=== PATIENT | male | born 1960 | race Caucasian/White ===

== ENCOUNTER 2017-11-25 22:13 | Emergency (ER) | payer SELFPAY ==
[~2017-11-25] VITALS: Ht 185.4 cm; Wt 79.4 kg
[2017-11-25 22:19] VITALS: BP 111/66
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
[2017-11-26] MEDS ORDERED: AZIT250T6 PO (00:09)
== END 2017-11-26 00:14 | disposition home or self-care (01) ==
LOC: ER 22:13
DX: S00.83XA Contusion of other part of head, initial encounter (principal); S20.211A Contusion of right front wall of thorax, initial encounter; J18.1 Lobar pneumonia, unspecified organism; S00.33XA Contusion of nose, initial encounter; G89.29 Other chronic pain; J44.9 Chronic obstructive pulmonary disease, unspecified; F17.210 Nicotine dependence, cigarettes, uncomplicated; V49.49XA Driver injured in collision with other motor vehicles in traffic accident, initial encounter; Y93.89 Activity, other specified; Y92.488 Other paved roadways as the place of occurrence of the external cause; Y99.8 Other external cause status
CPT/HCPCS: 71046; 99284

== ENCOUNTER 2018-08-02 18:18 | Emergency (ER) | payer SELFPAY ==
[~2018-08-02] VITALS: Ht 177.8 cm; Wt 79.4 kg
[~2018-08-02 18:18] MED LIST: AZIT250T6 PO
--- NOTE | 2018-08-02 19:06 | PHYS DOC ---
Past Medical History Past Medical History: COPD Additional Past Medical Histor: Chronic Pain Past Surgical History: No Surgical History Alcohol Use: Occasionally Drug Use: Methadone Adult General Chief Complaint Chief Complaint: ALCOHOL INTOXICATION HPI HPI Patient is a 57 year old male with history of COPD, chronic pain, chronic alcoholism with binge drinking for the past several days. Patient states rate out of methadone 2 days ago and is been drinking 2 pints of alcohol daily. He is requesting medical screening evaluation for treatment of chronic alcoholism. Patient is drank heavily throughout the day. Patient's brother states patient has been following and when he has tried detoxing on his own, the patient does experience DTs. Patient currently denies chest pain palpitations, shortness of breath. Denies pain, or injury or other complaint. Patient is not currently involved in an alcohol rehabilitation program. No reports HI, SI, paranoia delusions or hallucinations. [] Review of Systems Review of Systems ROS as per HPI All other systems were reviewed and found to be within normal limits, except as documented in this note. Current Medications Current Medications Current Medications Medications (Trade) Dose Ordered Sig/Marisela Start Time Stop Time Status Last Admin Dose Admin Diazepam (Valium) 5 mg 1X ONCE 08/02/18 22:00 08/02/18 22:01 DC 08/02/18 21:53 5 MG Multivitamins 10 ml/Thiamine HCl 100 mg/Folic Acid 1 mg/Sodium Chloride 1,011.2 ml @ 1,000.088 mls/hr 1X ONCE 08/02/18 20:00 08/02/18 21:00 DC 08/02/18 19:21 1,000.088 MLS/HR Potassium Chloride (Klor-Con) 40 meq 1X ONCE 08/02/18 22:00 08/02/18 22:01 DC 08/02/18 21:53 40 MEQ Allergies Allergies Allergies Coded Allergies Type Severity Reaction Last Updated Verified No Known Drug Allergies 09/03/14 No Physical Exam Physical Exam Constitutional: Well developed, well nourished, no acute distress, non-toxic appearance. [] HENT: Normocephalic, atraumatic, bilateral external ears normal, oropharynx moist, no oral exudates, nose normal. [] Eyes: PERRL, conjunctiva injected [] Neck: Normal range of motion, no tenderness, supple, no stridor. [] Cardiovascular:Heart rate regular rhythm, no murmur [] Lungs & Thorax: Bilateral breath sounds clear to auscultation [] Abdomen: Bowel sounds normal. [] Skin: Warm, dry. [] Back: No tenderness, no CVA tenderness. [] Extremities: No tenderness, no cyanosis, no clubbing, ROM intact, no edema. [] Neurologic: Alert and oriented to person and place, slurring of speech, normal motor function, normal sensory function, no focal deficits noted. [] Psychologic: Affect normal, no HI, SI or hallucinations.[] Current Patient Data Vital Signs Vital Signs Date Time Temp Pulse Resp B/P (MAP) Pulse Ox O2 Delivery O2 Flow Rate FiO2 08/02/18 21:55 102 16 157/86 (109) 94 Room Air 08/02/18 18:55 98.2 98.2 Lab Values Laboratory Tests Test 08/02/18 19:10 08/02/18 19:40 White Blood Count 7.4 x10^3/uL (4.0-11.0) Red Blood Count 4.89 x10^6/uL (4.30-5.70) Hemoglobin 16.5 g/dL (13.0-17.5) Hematocrit 49.4 % (39.0-53.0) Mean Corpuscular Volume 101 fL (79-100) H Mean Corpuscular Hemoglobin 34 pg (25-35) Mean Corpuscular Hemoglobin Concent 34 g/dL (31-37) Red Cell Distribution Width 13.8 % (11.5-14.5) Platelet Count 141 x10^3/uL (140-400) Neutrophils (%) (Auto) 73 % (31-73) Lymphocytes (%) (Auto) 21 % (24-48) L Monocytes (%) (Auto) 6 % (0-9) Eosinophils (%) (Auto) 1 % (0-3) Basophils (%) (Auto) 0 % (0-3) Neutrophils # (Auto) 5.4 x10^3uL (1.8-7.7) Lymphocytes # (Auto) 1.5 x10^3/uL (1.0-4.8) Monocytes # (Auto) 0.4 x10^3/uL (0.0-1.1) Eosinophils # (Auto) 0.0 x10^3/uL (0.0-0.7) Basophils # (Auto) 0.0 x10^3/uL (0.0-0.2) Sodium Level 140 mmol/L (136-145) Potassium Level 3.2 mmol/L (3.5-5.1) L Chloride Level 100 mmol/L (98-107) Carbon Dioxide Level 24 mmol/L (21-32) Anion Gap 16 (6-14) H Blood Urea Nitrogen 16 mg/dL (8-26) Creatinine 1.0 mg/dL (0.7-1.3) Estimated GFR (Cockcroft-Gault) 76.5 BUN/Creatinine Ratio 16 (6-20) Glucose Level 151 mg/dL (70-99) H Calcium Level 9.4 mg/dL (8.5-10.1) Magnesium Level 2.1 mg/dL (1.8-2.4) Total Bilirubin 0.5 mg/dL (0.2-1.0) Aspartate Amino Transferase (AST) 205 U/L (15-37) H Alanine Aminotransferase (ALT) 151 U/L (16-63) H Alkaline Phosphatase 67 U/L (46-116) Total Protein 7.8 g/dL (6.4-8.2) Albumin 4.1 g/dL (3.4-5.0) Albumin/Globulin Ratio 1.1 (1.0-1.7) Thyroid Stimulating Hormone (TSH) 0.854 uIU/mL (0.358-3.74) Ethyl Alcohol Level 342 mg/dL (0-10) H Urine Opiates Screen Pos (NEG) Urine Methadone Screen Pos (NEG) Urine Barbiturates Neg (NEG) Urine Phencyclidine Screen Neg (NEG) Urine Amphetamine/Methamphetamine Pos (NEG) Urine Benzodiazepines Screen Neg (NEG) Urine Cocaine Screen Neg (NEG) Urine Cannabinoids Screen Neg (NEG) Urine Ethyl Alcohol Pos (NEG) Laboratory Tests 08/02/18 19:10 Laboratory Tests 08/02/18 19:10 EKG EKG [] Radiology/Procedures Radiology/Procedures [] Course & Med Decision Making Course & Med Decision Making Pertinent Labs and Imaging studies reviewed. (See chart for details) [No signs stable. No chest pain, palpitations, shortness of breath. Alcohol, urine drug screen positive for multiple substances. Psychiatric assessment team counselor consult it. Social detox arrange. Patient given Valium and prescription for Librium to facilitate detox. Patient alert and oriented, walks with steady gait prior to departure.] Dragon Disclaimer Dragon Disclaimer This electronic medical record was generated, in whole or in part, using a voice recognition dictation system. Departure Departure Impression: Primary Impression: Polysubstance abuse Condition: STABLE Referrals: NO PCP (PCP) DAFNE NASH DO Aug 02, 2018 19:06
[2018-08-02 19:32] LABS: BASO % 0 % (0-3); EOS % 1 % (0-3); HEMATOCRIT 49.4 % (39.0-53.0); HEMOGLOBIN 16.5 g/dL (13.0-17.5); LYMPH # 1.5 x10^3/uL (1.0-4.8); LYMPH % 21 % (24-48); MEAN CORPUSCULAR HEMOGLOBIN 34 pg (25-35); MEAN CORPUSCULAR HGB CONC 34 g/dL (31-37); MEAN CORPUSCULAR VOLUME 101 fL (79-100); MONO # 0.4 x10^3/uL (0.0-1.1); MONO % 6 % (0-9); NEUT # 5.4 x10^3uL (1.8-7.7); NEUT % 73 % (31-73); PLATELET COUNT 141 x10^3/uL (140-400); RED BLOOD COUNT 4.89 x10^6/uL (4.30-5.70); RED CELL DISTRIBUTION WIDTH 13.8 % (11.5-14.5); WHITE BLOOD COUNT 7.4 x10^3/uL (4.0-11.0)
[2018-08-02 19:40] LABS: CALCIUM 9.4 mg/dL (8.5-10.1); GFR 76.5; POTASSIUM 3.2 mmol/L (3.5-5.1)
[2018-08-02 19:47] LABS: ALBUMIN 4.1 g/dL (3.4-5.0); ALBUMIN/GLOBULIN RATIO 1.1 (1.0-1.7); MAGNESIUM 2.1 mg/dL (1.8-2.4); TOTAL BILIRUBIN 0.5 mg/dL (0.2-1.0); TOTAL PROTEIN 7.8 g/dL (6.4-8.2)
[2018-08-02 20:00] LABS: BARBITURATES NEG (NEG); BENZODIAZEPINES NEG (NEG); CANNABINOIDS NEG (NEG); COCAINE NEG (NEG); METHADONE POS (NEG); OPIATES POS (NEG); PHENCYCLIDINE NEG (NEG)
[2018-08-02] MEDS ORDERED: MULTIVIT INFUSN,ADULT 4,VIT K 10 ML, THIAMINE INJ 100 MG, FOLIC ACID INJ 1 MG in IV NOR... IV ONE (20:00)
[2018-08-02 20:02] LABS: AMPHETAMINE/METHAMPHETAMINE POS (NEG)
[2018-08-02 21:55] VITALS: BP 157/86
[2018-08-02] MEDS ORDERED: diazePAM 5 MG TABLET PO ONE (22:00)
[2018-08-02] MEDS ORDERED: POTASSIUM CHLORIDE 20 MEQ TABLET.ER. PO ONE (22:00)
--- NOTE | 2018-08-03 08:37 | EKG ---
[facility] [address] [place] [address] Test Date: 2018-08-02 Test Time: 18:56:10 Pat Name: CRISTINA ALEXANDER Department: Room: Gender: M [employer] Agents Supervisor: : [id number] Requested By: DAFNE NASH Order Number: [id number] Reading MD: Ashwin Zamora Measurements Intervals [place] Rate: 113 P: 10 GA: 154 QRS: -18 QRSD: 76 T: 42 QT: 308 QTc: 428 Interpretive Statements SINUS TACHYCARDIA LEFTWARD AXIS QRS(T) CONTOUR ABNORMALITY CONSISTENT WITH INFERIOR INFARCT PROBABLY OLD ABNORMAL ECG Electronically Signed On 08-06-2018 13:11:44 CDT by Ashwin Zamora
== END 2018-08-02 22:08 | disposition home or self-care (01) ==
LOC: ER 18:18
DX: F19.10 Other psychoactive substance abuse, uncomplicated (principal); J44.9 Chronic obstructive pulmonary disease, unspecified; G89.29 Other chronic pain; R47.81 Slurred speech
CPT/HCPCS: 36415; 80053; 80307; 83735; 84443; 85025; 93005; 96365; 99285; G0480; J7030

== ENCOUNTER 2018-10-13 20:59 | Emergency (ER) | payer SELFPAY ==
[~2018-10-13] VITALS: Ht 182.9 cm; Wt 79.4 kg
[2018-10-13 21:15] VITALS: BP 120/77
--- NOTE | 2018-10-13 21:15 | PHYS DOC ---
Past Medical History Past Medical History: Alcoholism, COPD Additional Past Medical Histor: Chronic Pain; drug use (SUDHIR SIMPSON APRN) Past Surgical History: No Surgical History (SUDHIR SIMPSON APRN) Alcohol Use: Heavy Drug Use: Heroin, Methadone, Methamphetamine (SUDHIR SIMPSON APRN) Adult General Chief Complaint Chief Complaint: FINGER INJURY HPI HPI Patient is a 58 year old male with a history of alcoholism, COPD, chronic pain who presents to the ED today complaining of right ring finger swelling and infection that began 2 weeks ago after he accidentally scraped his finger on a table saw. Patient denies any fever. He states goes to the methadone clinic for chronic pain (SUDHIR SIMPSON APRN) Review of Systems Review of Systems Constitutional: Denies fever or chills [] Musculoskeletal: Denies back pain or joint pain [] Integument: Reports right ring finger infection Neurologic: Denies headache, focal weakness or sensory changes [] All other systems were reviewed and found to be within normal limits, except as documented in this note. (SUDHIR SIMPSON APRN) Current Medications Current Medications Current Medications Medications (Trade) Dose Ordered Sig/Marisela Start Time Stop Time Status Last Admin Dose Admin Cefepime HCl (Maxipime) 2 gm 1X ONCE 10/13/18 22:30 10/13/18 22:31 DC 10/13/18 22:29 2 GM Sodium Chloride 1,000 ml @ 1,000 mls/hr Q1H 10/13/18 22:30 10/14/18 00:49 DC 10/13/18 22:45 1,000 MLS/HR Vancomycin HCl (Vanco Per Pharmacy) 1 each PRN DAILY PRN 10/13/18 22:00 10/14/18 01:09 DC Vancomycin HCl 2 gm/Sodium Chloride 500 ml @ 250 mls/hr 1X ONCE 10/13/18 23:00 10/14/18 00:59 DC 10/13/18 22:47 250 MLS/HR (MARCI WANG MD) Allergies Allergies Allergies Coded Allergies Type Severity Reaction Last Updated Verified No Known Drug Allergies 09/03/14 No (MARCI WANG MD) Physical Exam Physical Exam Constitutional: Well developed, well nourished, no acute distress, non-toxic appearance. [] skin: Distal end of the right ring finger with moderate swelling and erythema from the PIP joint going to the tip of the finger . The finger is warm, tender to touch. There is a scab over the top of the finger to the right lateral aspect of the ring finger.Limited ROM to the right ring finger especially the PIP and DIP joints. +2 right radial pulse. Adequate ulnar sensation to the right ring finger. Back: No tenderness, no CVA tenderness. [] Extremities: No tenderness, no cyanosis, no clubbing, ROM intact, no edema. [] Neurologic: Alert and oriented X 3, normal motor function, normal sensory fu nction, no focal deficits noted. [] Psychologic: Affect normal, judgement normal, mood normal. [] (SUDHIR SIMPSON APRN) Current Patient Data Vital Signs Vital Signs Date Time Temp Pulse Resp B/P (MAP) Pulse Ox O2 Delivery O2 Flow Rate FiO2 10/13/18 21:15 98.4 96 18 120/77 (91) 93 Room Air 98.4 (MARCI WANG MD) Lab Values Laboratory Tests Test 10/13/18 22:05 White Blood Count 11.2 x10^3/uL (4.0-11.0) H Red Blood Count 4.26 x10^6/uL (4.30-5.70) L Hemoglobin 14.9 g/dL (13.0-17.5) Hematocrit 43.8 % (39.0-53.0) Mean Corpuscular Volume 103 fL (79-100) H Mean Corpuscular Hemoglobin 35 pg (25-35) Mean Corpuscular Hemoglobin Concent 34 g/dL (31-37) Red Cell Distribution Width 14.4 % (11.5-14.5) Platelet Count 140 x10^3/uL (140-400) Neutrophils (%) (Auto) 78 % (31-73) H Lymphocytes (%) (Auto) 15 % (24-48) L Monocytes (%) (Auto) 5 % (0-9) Eosinophils (%) (Auto) 2 % (0-3) Basophils (%) (Auto) 1 % (0-3) Neutrophils # (Auto) 8.7 x10^3uL (1.8-7.7) H Lymphocytes # (Auto) 1.6 x10^3/uL (1.0-4.8) Monocytes # (Auto) 0.6 x10^3/uL (0.0-1.1) Eosinophils # (Auto) 0.2 x10^3/uL (0.0-0.7) Basophils # (Auto) 0.1 x10^3/uL (0.0-0.2) Prothrombin Time 12.3 SEC (11.7-14.0) Prothrombin Time INR 0.9 (0.8-1.1) PTT 26 SEC (24-38) Sodium Level 140 mmol/L (136-145) Potassium Level 3.5 mmol/L (3.5-5.1) Chloride Level 102 mmol/L (98-107) Carbon Dioxide Level 27 mmol/L (21-32) Anion Gap 11 (6-14) Blood Urea Nitrogen 16 mg/dL (8-26) Creatinine 1.2 mg/dL (0.7-1.3) Estimated GFR (Cockcroft-Gault) 61.8 BUN/Creatinine Ratio 13 (6-20) Glucose Level 101 mg/dL (70-99) H Lactic Acid Level 2.1 mmol/L (0.4-2.0) H Calcium Level 8.9 mg/dL (8.5-10.1) Total Bilirubin 0.4 mg/dL (0.2-1.0) Aspartate Amino Transferase (AST) 30 U/L (15-37) Alanine Aminotransferase (ALT) 31 U/L (16-63) Alkaline Phosphatase 67 U/L (46-116) Total Protein 7.9 g/dL (6.4-8.2) Albumin 3.5 g/dL (3.4-5.0) Albumin/Globulin Ratio 0.8 (1.0-1.7) L Procalcitonin < 0.10 ng/mL (0.00-0.10) Ethyl Alcohol Level 202 mg/dL (0-10) H Laboratory Tests 10/13/18 22:05 Laboratory Tests 10/13/18 22:05 Microbiology 10/13/18 Blood Culture - Final, Complete NO GROWTH AFTER 5 DAYS (MARCI WANG MD) Lab Values Laboratory Tests Test 10/13/18 22:05 White Blood Count 11.2 x10^3/uL (4.0-11.0) H Red Blood Count 4.26 x10^6/uL (4.30-5.70) L Hemoglobin 14.9 g/dL (13.0-17.5) Hematocrit 43.8 % (39.0-53.0) Mean Corpuscular Volume 103 fL (79-100) H Mean Corpuscular Hemoglobin 35 pg (25-35) Mean Corpuscular Hemoglobin Concent 34 g/dL (31-37) Red Cell Distribution Width 14.4 % (11.5-14.5) Platelet Count 140 x10^3/uL (140-400) Neutrophils (%) (Auto) 78 % (31-73) H Lymphocytes (%) (Auto) 15 % (24-48) L Monocytes (%) (Auto) 5 % (0-9) Eosinophils (%) (Auto) 2 % (0-3) Basophils (%) (Auto) 1 % (0-3) Neutrophils # (Auto) 8.7 x10^3uL (1.8-7.7) H Lymphocytes # (Auto) 1.6 x10^3/uL (1.0-4.8) Monocytes # (Auto) 0.6 x10^3/uL (0.0-1.1) Eosinophils # (Auto) 0.2 x10^3/uL (0.0-0.7) Basophils # (Auto) 0.1 x10^3/uL (0.0-0.2) Prothrombin Time 12.3 SEC (11.7-14.0) Prothrombin Time INR 0.9 (0.8-1.1) PTT 26 SEC (24-38) Sodium Level 140 mmol/L (136-145) Potassium Level 3.5 mmol/L (3.5-5.1) Chloride Level 102 mmol/L (98-107) Carbon Dioxide Level 27 mmol/L (21-32) Anion Gap 11 (6-14) Blood Urea Nitrogen 16 mg/dL (8-26) Creatinine 1.2 mg/dL (0.7-1.3) Estimated GFR (Cockcroft-Gault) 61.8 BUN/Creatinine Ratio 13 (6-20) Glucose Level 101 mg/dL (70-99) H Lactic Acid Level 2.1 mmol/L (0.4-2.0) H Calcium Level 8.9 mg/dL (8.5-10.1) Total Bilirubin 0.4 mg/dL (0.2-1.0) Aspartate Amino Transferase (AST) 30 U/L (15-37) Alanine Aminotransferase (ALT) 31 U/L (16-63) Alkaline Phosphatase 67 U/L (46-116) Total Protein 7.9 g/dL (6.4-8.2) Albumin 3.5 g/dL (3.4-5.0) Albumin/Globulin Ratio 0.8 (1.0-1.7) L Procalcitonin < 0.10 ng/mL (0.00-0.10) Ethyl Alcohol Level 202 mg/dL (0-10) H Laboratory Tests 10/13/18 22:05 Laboratory Tests 10/13/18 22:05 (SUDHIR SIMPSON APRN) EKG EKG [] (SUDHIR SIMPSON APRN) Radiology/Procedures Radiology/Procedures [] (SUDHIR SIMPSON APRN) Course & Med Decision Making Course & Med Decision Making Pertinent Labs and Imaging studies reviewed. (See chart for details) This is a 58-year-old male patient presented to the ED today with right ring finger infection that began 2 weeks ago after he accidentally scraped his right ring finger on a table saw. Tetanus is up to date Distal right ring finger with moderate erythema, and swelling. Right ring finger x-rays interpreted by Dr. Wang was noted for osteomyelitis. [id number] with Dion at [facility], awaiting accepting physician Labs were ordered including blood cultures, patient was started on antibiotics including cefepime and vancomycin per sepsis protocol. Dr. Nica Peres accepted patient Patient himself would like his brother to transport him to because he does not want to pay for the ambulance ride. We are still waiting for the brother to come. Labs CBC with a WBC of 11.2 and a left shift, CMP no acute findings, lactic 2.1, alcohol level CCII. (SUDHIR SIMPSON APRN) Course & Med Decision Making A Staff Physician Addendum: I was working in the ER during the course of this patient's visit. I was available for consultation as needed, but I was not directly involved in the ca re of this patient. (MARCI WANG MD) Dragon Disclaimer Dragon Disclaimer This electronic medical record was generated, in whole or in part, using a voice recognition dictation system. (SUDHIR SIMPSON APRN) Departure Departure Impression: Primary Impression: Osteomyelitis of finger Additional Impression: Sepsis Disposition: 05 TRANSFER OTHER Condition: STABLE Referrals: NO PCP (PCP) Date and Time of Reassessment Date: Oct 13, 2018 Time: 22:45 (SUDHIR SIMPSON APRN) Fluid Challenge Is the fluid challenge complet: No IBW Target Volume Used: Yes BMI > 30: No (SUDHIR SIMPSON APRN) Vital Signs Vital Signs: Vital Signs Date Time Temp Pulse Resp B/P (MAP) Pulse Ox O2 Delivery O2 Flow Rate FiO2 10/13/18 21:15 98.4 96 18 120/77 (91) 93 Room Air 98.4 (MARCI WANG MD) Temperature Source: Oral (SUDHIR SIMPSON APRN) Temperature Source: Oral (MARCI WANG MD) Respirations Respiratory Effort: Normal Respiratory Pattern: Normal (SUDHIR SIMPSON APRN) Cardiovascular Pulse Rhythm: Regular Heart: Nml rate, reg. rhythm (SUDHIR SIMPSON APRN) Lung Sounds Breath Sounds: Clear (SUDHIR SIMPSON APRN) Capillary Refil Capillary Refill: Lt Hand > 3 seconds (SUDHIR SIMPSON APRN) Peripheral Pulse Pulse Location: Monitor Pulse Strength: Normal (2+) Pulse Assessment Method: Monitor (SUDHIR SIMPSON APRN) Pulse Assessment Method: Monitor (MARCI WANG MD) Integumentary Skin: Warm, Dry Skin Moisture: Dry Skin Turgor: Normal Skin Color: warm Fingernail Color: WNL (SUDHIR SIMPSON APRN) Skin Moisture: Dry (MARCI WANG MD) Problem Qualifiers Additional Impression: Sepsis Sepsis type: sepsis due to unspecified organism Qualified Codes: A41.9 - Sepsis, unspecified organism SUDHIR SIMPSON APRN Oct 13, 2018 21:15 MARCI WANG MD Oct 19, 2018 19:11
[2018-10-13] MEDS ORDERED: VANCOMYCIN PER PHARMACY MC PRN (22:00)
--- NOTE | 2018-10-13 22:01 | RAD ---
FINGER(S) RIGHT Clinical Indication: Right fourth digit pain and swelling. Table saw incident 2 weeks ago. Comparison: None. Findings: There is soft tissue swelling of the fourth finger most apparent distally. There are tiny radiopaque densities medial and dorsal to the fourth DIP joint. There is mild bony erosion at the base of the distal phalanx. There is periosteal reaction along the head of the fourth middle phalanx. Cannot exclude subacute nondisplaced fracture. Bony articulations of the hand are otherwise maintained. The mineralization is normal. IMPRESSION: 1. Soft tissue swelling of the fourth finger. 2. Bony erosion at the base of the distal phalanx suggestive of osteomyelitis. There may be 4th DIP joint septic arthritis. Electronically signed by: Ollie Mane MD (10/13/2018 9:58 PM) [id number]
[2018-10-13 22:22] LABS: BASO # 0.1 x10^3/uL (0.0-0.2); BASO % 1 % (0-3); EOS # 0.2 x10^3/uL (0.0-0.7); EOS % 2 % (0-3); HEMATOCRIT 43.8 % (39.0-53.0); HEMOGLOBIN 14.9 g/dL (13.0-17.5); LYMPH # 1.6 x10^3/uL (1.0-4.8); LYMPH % 15 % (24-48); MEAN CORPUSCULAR HEMOGLOBIN 35 pg (25-35); MEAN CORPUSCULAR HGB CONC 34 g/dL (31-37); MEAN CORPUSCULAR VOLUME 103 fL (79-100); MONO # 0.6 x10^3/uL (0.0-1.1); MONO % 5 % (0-9); NEUT # 8.7 x10^3uL (1.8-7.7); NEUT % 78 % (31-73); PLATELET COUNT 140 x10^3/uL (140-400); RED BLOOD COUNT 4.26 x10^6/uL (4.30-5.70); RED CELL DISTRIBUTION WIDTH 14.4 % (11.5-14.5); WHITE BLOOD COUNT 11.2 x10^3/uL (4.0-11.0)
[2018-10-13] MEDS ORDERED: CEFEPIME HCL IV Push 2 GM VIAL. IVP ONE (22:30)
[2018-10-13] MEDS ORDERED: IV NORMAL SALINE 1000ML BAG 1,000 ML IV SCH (22:30)
[2018-10-13 22:33] LABS: CALCIUM 8.9 mg/dL (8.5-10.1); CREATININE 1.2 mg/dL (0.7-1.3); GFR 61.8; POTASSIUM 3.5 mmol/L (3.5-5.1)
[2018-10-13 22:35] LABS: PROTHROMBIN TIME PATIENT 12.3 SEC (11.7-14.0)
[2018-10-13 22:39] LABS: ALBUMIN 3.5 g/dL (3.4-5.0); ALBUMIN/GLOBULIN RATIO 0.8 (1.0-1.7); TOTAL BILIRUBIN 0.4 mg/dL (0.2-1.0); TOTAL PROTEIN 7.9 g/dL (6.4-8.2)
[2018-10-13] MEDS ORDERED: VANCOMYCIN 2 GM in IV NORMAL SALINE 500ML BAG 500 ML IV ONE (23:00)
== END 2018-10-14 01:05 | disposition home or self-care (01) ==
LOC: ER 20:59
DX: A41.9 Sepsis, unspecified organism (principal); M86.8X4 Other osteomyelitis, hand; G89.29 Other chronic pain; J44.9 Chronic obstructive pulmonary disease, unspecified; F10.20 Alcohol dependence, uncomplicated; Y90.7 Blood alcohol level of 200-239 mg/100 ml
CPT/HCPCS: 36415; 73140; 80053; 83605; 84145; 85025; 85610; 85730; 87040; 96365; 96366; 96375; 99285; G0480; J0692; J3370; J7030; J7040

== ENCOUNTER 2020-12-04 21:00 | Emergency (ER) | payer SELFPAY | END 2020-12-05 03:17 | disposition left against medical advice (07) | LOC: ER 21:00 | DX: T14.8XXA Other injury of unspecified body region, initial encounter (principal); Z53.21 Procedure and treatment not carried out due to patient leaving prior to being seen by health care provider; W57.XXXA Bitten or stung by nonvenomous insect and other nonvenomous arthropods, initial encounter; Y93.89 Activity, other specified; Y92.89 Other specified places as the place of occurrence of the external cause; Y99.8 Other external cause status ==

== ENCOUNTER 2021-03-26 12:56 | Emergency (ER) | payer SELFPAY ==
[~2021-03-26] VITALS: Ht 182.9 cm; Wt 61.0 kg
[2021-03-26 13:23] VITALS: BP 163/96
[2021-03-26] MEDS ORDERED: KETOROLAC 60 MG/2 ML VIAL. IM ONE (13:45)
--- NOTE | 2021-03-26 14:02 | RAD ---
EXAM: Right lower extremity venous Doppler sonogram. HISTORY: Pain and swelling. TECHNIQUE: Sosa scale and color Doppler sonographic evaluation of the right lower extremity veins wit h spectral waveform analysis was performed. FINDINGS: There is normal color flow, normal compressibility and there are normal spectral waveforms in the common femoral, superficial femoral, popliteal, posterior tibial and greater saphenous veins. IMPRESSION: No Doppler evidence of lower extremity deep venous thrombosis. Electronically signed by: Pamella Rothman MD (03/26/2021 1:59 PM) [id number]
--- NOTE | 2021-03-26 14:35 | PHYS DOC ---
Past Medical History Past Medical History: Alcoholism, COPD Additional Past Medical Histor: Chronic Pain; drug use Past Surgical History: No Surgical History Smoking Status: Current Every Day Smoker Alcohol Use: Occasionally Drug Use: Heroin, Methadone, Methamphetamine General Adult EDM: Chief Complaint: LOWER EXT PAIN HPI: HPI: Patient is a 60 year old male who presents with right lower leg pain for the past 3 weeks. Patient reports his pain is 9/10 nonradiating and constant. Initially, he thought it was a flareup of his sciatica. At the beginning of this 3-week history of pain, he did have some pain in his right buttock, but it is since resolved. He reports associated right foot paresthesias intermittently. Patient has used a compression sleeve with some symptom relief. He states that his pain is worse after working all day. He denies swelling, erythema, chest pain, palpitations, edema, shortness of breath, cough. Patient denies history of prior clots in his legs, lungs or brain. He denies all past medical history, does not take any daily medications. Review of Systems: Review of Systems: Constitutional: Denies fever or chills. Respiratory: See HPI Cardiovascular: See HPI GI: Denies abdominal pain, nausea, vomiting, bloody stools or diarrhea. : Denies dysuria or hematuria. Musculoskeletal: See HPI Integument: Denies rash or other skin lesions. Neurologic: Denies headache, focal weakness or sensory changes. Heart Score: C/O Chest Pain: No Current Medications: Current Medications Medications (Trade) Dose Ordered Sig/[facility] Start Time Stop Time Status Last Admin Dose Admin Ketorolac Tromethamine (Toradol Im) 60 mg 1X ONCE 03/26/21 13:45 03/26/21 13:46 DC 03/26/21 14:06 60 MG Allergies: Allergies: Allergies Coded Allergies Type Severity Reaction Last Updated Verified No Known Drug Allergies 09/03/14 No Physical Exam: PE: Constitutional: Well developed, well nourished, no acute distress, non-toxic appearance. Neck: Normal range of motion, no tenderness, no JVD. Cardiovascular: Heart rate regular rhythm, no murmur. Lungs & Thorax: Bilateral breath sounds clear to auscultation. Skin: Warm, dry, no erythema, no rash. Back: No step-offs, no midline tenderness, no CVA tenderness. Extremities: No tenderness, no cyanosis, no clubbing, ROM intact, no edema, DP/PT pulses 2+ bilaterally. Neurologic: Alert and oriented x4, no focal deficits noted. Current Patient Data: Vital Signs: Vital Signs Date Time Temp Pulse Resp B/P (MAP) Pulse Ox O2 Delivery O2 Flow Rate FiO2 03/26/21 13:23 98.1 96 12 163/96 (118) 98 Room Air 98.1 Radiology/Procedures: Radiology/Procedures: PROCEDURE: VENOUS LOWER EXTREMITY RIGHT EXAM: Right lower extremity venous Doppler sonogram. HISTORY: Pain and swelling. TECHNIQUE: Sosa scale and color Doppler sonographic evaluation of the right lower extremity veins with spectral waveform analysis was performed. FINDINGS: There is normal color flow, normal compressibility and there are normal spectral waveforms in the common femoral, superficial femoral, popliteal, posterior tibial and greater saphenous veins. IMPRESSION: No Doppler evidence of lower extremity deep venous thrombosis. Electronically signed by: Pamella Rothman MD (03/26/2021 1:59 PM) [id number] Course & Med Decision Making: Course & Med Decision Making Pertinent Labs and Imaging studies reviewed. (See chart for details) 60-year-old male presents with weeks long history of right lower extremity pain that began in his hip and is now been consistently in his right calf. He does not have any swelling, erythema or marked tenderness. US RLE ordered to evaluate for DVT. Patient states he last used methamphetamines last week. He is encouraged by nursing staff and myself to discontinue use of illicit substances. US is negative. Patient will be treated for muscle strain. He should establish care with a primary doctor for continued symptoms and evaluation of elevated blood pressure reading. Patient understands and is agreeable to discharge plan. Dragon Disclaimer: Kailash Disclaimer: This electronic medical record was generated, in whole or in part, using a voice recognition dictation system. Departure Departure Impression: Primary Impression: Strain of right calf muscle Additional Impressions: History of sciatica Elevated blood pressure reading Disposition: HOME / SELF CARE / HOMELESS Condition: STABLE Referrals: NO PCP (PCP) Patient Instructions: Muscle Strain, [id number] Additional Instructions: As discussed, there were no clots found in the right leg today. You'll be treated for muscle strain. Care instructions were provided to you in this paperwork. If your pain becomes unmanageable or you develop any new symptoms, please return to the emergency department. You're provided with a list of local primary care doctors. If you do not have your own primary care doctor, you may choose any of the physicians listed to establish care. OLIMPIA MARIO Mar 26, 2021 14:35
== END 2021-03-26 14:55 | disposition home or self-care (01) ==
LOC: ER 12:56
DX: S86.911A Strain of unspecified muscle(s) and tendon(s) at lower leg level, right leg, initial encounter (principal); M54.41 Lumbago with sciatica, right side; R03.0 Elevated blood-pressure reading, without diagnosis of hypertension; J44.9 Chronic obstructive pulmonary disease, unspecified; F17.200 Nicotine dependence, unspecified, uncomplicated; X50.9XXA Other and unspecified overexertion or strenuous movements or postures, initial encounter; Y93.89 Activity, other specified; Y92.89 Other specified places as the place of occurrence of the external cause; Y99.8 Other external cause status
CPT/HCPCS: 93971; 96372; 99284; J1885